=== PATIENT | male | born 2000 | race African-American/Black ===

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

== ENCOUNTER 2022-04-11 17:44 | Emergency (ER) | payer OTHER, SELFPAY ==
[2022-04-11] MEDS ORDERED: Acetaminophen 500 MG TAB ONE (18:29)
== END 2022-04-11 18:51 | disposition home or self-care (01) ==
LOC: ERS 17:44
DX: H66.93 Otitis media, unspecified, bilateral (principal)
CPT/HCPCS: 99282

== ENCOUNTER 2022-04-22 08:52 | Emergency (ER) | payer MEDICAID, OTHER ==
[2022-04-22 09:25] LABS: #Lymphocytes 1.5 thou/uL (1.20-3.40); #Monocytes 0.7 thou/uL (0.11-0.59); #Neutrophils 2.7 thou/uL (1.40-6.50); %Basophils 0.6 % (0.0-1.0); %Eosinophils 0.5 % (0.0-10.0); %Lymphocytes 31.2 % (28.0-48.0); %Monocytes 14.3 % (0.0-4.0); %Neutrophils 53.4 % (31.0-61.0); Hemoglobin 7.6 g/dL (14.0-18.0); Mean Corpuscular HGB CONC 32.1 g/dL (32.0-36.0); Mean Corpuscular Hemoglobin 30.1 pg (25.0-35.0); Mean Platelet Volume 6.3 fL (7.4-10.4); Platelet Count 218 thou/uL (130-400); Red Blood Cell (RBC) Count 2.52 mill/uL (4.00-5.20)
[2022-04-22 09:38] LABS: ALT (SGPT) 42 U/L (8-55); AST (SGOT) 42 U/L (10-45); Albumin 2.4 g/dL (3.5-5.0); Alkaline Phosphatase 231 U/L (50-130); Anion Gap 11 mmol/L (10-20); BUN (Urea Nitrogen) 5 mg/dL (8.4-21.0); Bilirubin, Total 0.7 mg/dL (0.2-1.2); Calc. Creatinine Clearance 0 mL/min (70-130); Carbon Dioxide 26 mmol/L (22-29); Chloride 102 mmol/L (98-107); Estimated GFR 133; Globulin 5.4 g/dL (2.4-3.5); Glucose 130 mg/dL (70-105); Protein, Total 7.8 g/dL (6.0-8.3); Sodium 137 mmol/L (136-145)
[2022-04-22 09:41] LABS: Potassium 2.2 mmol/L (3.5-5.1)
[2022-04-22 10:01] LABS: Lipase 18 U/L (8-78); Magnesium 1.8 mg/dL (1.7-2.2)
[2022-04-22] MEDS ORDERED: Potassium Chloride 20 MEQ TAB ONE (10:44)
[2022-04-22 12:19] LABS: Bacteria/HPF None Seen HPF (None Seen); Bilirubin Negative (Negative); Blood, Urine Negative (Negative); Clarity Clear (Clear); Glucose, Urine (Dipstick) Normal (Negative); Ketone, Urine Negative (Negative); Leukocyte Negative Leu/uL (Negative); Nitrite Negative (Negative); Protein, Urine (Dipstick) 30 mg/dL (Neg-Trace); RBC/HPF 0-3 HPF (0-3); Specific Gravity, Urine 1.017 (1.002-1.036); Squamous Epithelial None Seen HPF (0-3); Urobilinogen Normal mg/dL (Less than 2)
== END 2022-04-22 15:22 | disposition home or self-care (01) ==
LOC: ERS 08:52
DX: D64.9 Anemia, unspecified (principal); K62.5 Hemorrhage of anus and rectum; B20 Human immunodeficiency virus [HIV] disease
CPT/HCPCS: 36415; 36430; 80053; 81003; 81015; 82274; 83690; 83735; 84443; 85025; 86850; 86900; 86901; 93005; 94760; P9016

== ENCOUNTER 2022-11-09 14:00 | Inpatient (IN) | payer OTHER ==
[~2022-11-09 14:00] MED LIST: Iopamidol 370 76% 100 ML VIAL ONE; Sulfameth/Trimethoprim DS 800-160mg TAB PO SCH
[2022-11-09] MEDS ORDERED: Magnesium 2 GM/50 ML BAG (IN WATER) ONE (14:15)
[2022-11-09] MEDS ORDERED: Dexamethasone 10 MG/ML VIAL ONE (14:25)
[2022-11-09 14:35] LABS: Hemoglobin 5.4 g/dL (14.0-18.0); Mean Corpuscular HGB CONC 33.6 g/dL (32.0-36.0); Mean Corpuscular Hemoglobin 29.7 pg (25.0-35.0); Mean Corpuscular Volume 88.5 fl (78.0-98.0); Mean Platelet Volume 9.3 fL (7.4-10.4); Platelet Count 78 10x3/uL (130-400); RBC Distribution Width 15.2 % (11.5-14.5); Red Blood Cell (RBC) Count 1.83 mill/uL (4.00-5.20); White Blood Cell (WBC) Count 7.1 10x3/uL (4.8-10.8)
[2022-11-09 14:52] LABS: Anisocytosis SLIGHT = 6-15 cells (100X) (0-5/hpf); Band 11 % (5-11); Lymphocytes 28 % (28-48); MDiff Complete? YES; Monocytes 11 % (0-4); Neutrophil 48 % (31-61); Platelet Morphology Comment Appears Decreased; Polychromasia MODERATE = 3-4 cells (100X) (0-2/hpf); Reactive Lymphocytes 2 % (0-10)
[2022-11-09 14:53] LABS: ALT (SGPT) 44 U/L (8-55); AST (SGOT) 84 U/L (5-34); Albumin 2.2 g/dL (3.5-5.0); Alkaline Phosphatase 156 U/L (50-130); Anion Gap 13 mmol/L (10-20); BUN (Urea Nitrogen) 16 mg/dL (8.9-20.6); Bilirubin, Total 1.2 mg/dL (0.2-1.2); CK (CPK) 10 U/L (30-200); Calc. Creatinine Clearance 0 mL/min (70-130); Calcium 7.3 mg/dL (7.8-10.44); Carbon Dioxide 18 mmol/L (22-29); Chloride 101 mmol/L (98-107); Estimated GFR 132; Globulin 4.4 g/dL (2.4-3.5); Glucose 155 mg/dL (70-105); Lipase 21 U/L (8-78); Potassium 3.6 mmol/L (3.5-5.1); Protein, Total 6.6 g/dL (6.0-8.3); Sodium 128 mmol/L (136-145)
[2022-11-09 14:54] LABS: Acetaminophen Less than 10.0 mcg/mL (10.0-30.0); Alcohol Less than 10 mg/dL (Less than 10); Salicylate Less than 8.0 mg/dL (15.0-30.0)
[2022-11-09 15:59] LABS: Bilirubin Negative (Negative); Blood, Urine Negative (Negative); Clarity Clear (Clear); Glucose, Urine (Dipstick) Normal (Negative); Ketone, Urine Negative (Negative); Leukocyte Negative Leu/uL (Negative); Nitrite Negative (Negative); Protein, Urine (Dipstick) 20 mg/dL (Neg-Trace); Specific Gravity, Urine 1.028 (1.002-1.036)
[2022-11-09 16:07] LABS: Amphetamine Not Detected (NotDetected); Barbiturates Screen Not Detected (NotDetected); Benzodiazepine Screen Not Detected (NotDetected); Cocaine Metabolite Screen Not Detected (NotDetected); Methadone Not Detected (NotDetected); Methamphetamine Not Detected (NotDetected); Opiate Screen Not Detected (NotDetected); Oxycodone Screen Not Detected (NotDetected); Phencyclidine (PCP) Not Detected (NotDetected); THC/Cannabinoid Screen Not Detected (NotDetected); Tricyclic Screen Not Detected (NotDetected)
[2022-11-09] MEDS ORDERED: cefTRIAXone\\ROCEPHIN 2 GM VIAL ONE (16:19)
[2022-11-09] MEDS ORDERED: Azithromycin 500 MG VIAL ONE (16:19)
[2022-11-09] MEDS ORDERED: Ondansetron PF 4 MG/2 ML Vial IVP PRN (16:24)
[2022-11-09] MEDS ORDERED: HYDROcodone/Acetaminophen 5/325 mg Tablet PO PRN (16:24)
[2022-11-09] MEDS ORDERED: Ipratropium/Albuterol 3 ML NEB ONE (16:31)
[2022-11-09] MEDS ORDERED: Ketorolac Tromethamine 30 MG/ML VIAL ONE (16:36)
[2022-11-09] MEDS ORDERED: HYDROmorphone 0.5 MG/0.5 ML SYRINGE SLOW IVP SCH (16:45)
[2022-11-09] MEDS ORDERED: Sulfameth/Trimethoprim DS 800-160mg TAB PO SCH (17:00)
[2022-11-09] MEDS ORDERED: Lidocaine 5% Patch TD SCH (17:00)
[2022-11-09] MEDS ORDERED: Folic Acid 1 MG TAB PO SCH (17:00)
[2022-11-09] MEDS ORDERED: Metoprolol Tartrate 5 MG/5 ML VIAL IVP PRN (17:08)
[2022-11-09 17:21] LABS: Iron 16 ug/dL (65-175); Iron Binding Capacity, Total 224 mcg/dL (261-462)
[2022-11-09] MEDS ORDERED: Iron Sucrose Complex 200 MG in Sodium Chloride 0.9% 100 ML IVPB SCH (17:30)
[2022-11-09 17:40] LABS: HBSAg Index 0.29 S/CO (0-0.99); Hep B Surf Ag Non-Reactive S/CO (NonReactive); Hep C IgG Ab Non-Reactive (NonReactive); Hep C Index 0.18 S/CO (0-0.79)
[2022-11-09 17:42] LABS: HBCM Index 0.13 S/CO (0-0.79); Hepatitis B Core IgM Abs Non-Reactive (NonReactive)
[2022-11-09 17:45] LABS: Vitamin B12 1432 pg/mL (211-911)
[2022-11-09] MEDS ORDERED: Iron, Sodium Ferric Gluconate 250 MG in Sodium Chloride 0.9% 250 ML 250 ML IVPB SCH ×2 (17:45→21:30)
[2022-11-09 17:49] LABS: SARS-CoV-2 NAA Rapid Test DETECTED (NotDetected)
[2022-11-09 17:55] LABS: HIV (1/2) Antibody/Antigen Reflxed Confirmation (NonReactive)
[2022-11-09 18:17] LABS: HIV 1/2 INDEX 1351.36 S/CO (<1.00)
[2022-11-09 18:18] LABS: Hep A IgM S/CO 0.82 S/CO (0-0.79)
[2022-11-09 18:30] LABS: Hep A IgM AB Equivocal (NonReactive)
[2022-11-09 18:32] LABS: Ferritin 5304.73 ng/mL (22-322)
[2022-11-09] MEDS: Sodium Chloride 0.9% 1,000 ML IV SCH (20:56)
[2022-11-09] MEDS: Famotidine/PF 20 mg/2ml Vial SLOW IVP SCH (21:00)
[2022-11-09] MEDS: Lidocaine 4% Patch TD SCH (21:44)
[2022-11-10 02:31] LABS: Strep pneumo Urine Ag NEGATIVE (NEGATIVE)
[2022-11-10] MEDS: Sodium Chloride 0.9% 1,000 ML IV SCH ×5 (03:48→22:06)
[2022-11-10 06:56] LABS: SARS-CoV-2 NAA Rapid Test DETECTED (NotDetected)
[2022-11-10 07:43] LABS: Mean Corpuscular Hemoglobin 28.1 pg (25.0-35.0); Mean Corpuscular Volume 87.9 fl (78.0-98.0); Mean Platelet Volume 9.7 fL (7.4-10.4); Platelet Count 58 10x3/uL (130-400); RBC Distribution Width 15.8 % (11.5-14.5); Red Blood Cell (RBC) Count 2.85 mill/uL (4.00-5.20); White Blood Cell (WBC) Count 6.4 10x3/uL (4.8-10.8)
[2022-11-10 08:01] LABS: ALT (SGPT) 45 U/L (8-55); AST (SGOT) 75 U/L (5-34); Albumin 1.9 g/dL (3.5-5.0); Alkaline Phosphatase 151 U/L (50-130); Anion Gap 11 mmol/L (10-20); BUN (Urea Nitrogen) 11 mg/dL (8.9-20.6); Bilirubin, Total 1.6 mg/dL (0.2-1.2); Calc. Creatinine Clearance 169 mL/min (70-130); Calcium 7.7 mg/dL (7.8-10.44); Carbon Dioxide 17 mmol/L (22-29); Chloride 108 mmol/L (98-107); Estimated GFR 146; Globulin 4.8 g/dL (2.4-3.5); Glucose 155 mg/dL (70-105); Potassium 4.4 mmol/L (3.5-5.1); Protein, Total 6.7 g/dL (6.0-8.3); Sodium 132 mmol/L (136-145)
[2022-11-10] MEDS ORDERED: Sulfameth/Trimethoprim DS 800-160mg TAB PO SCH (09:00)
[2022-11-10] MEDS: Famotidine/PF 20 mg/2ml Vial SLOW IVP SCH ×2 (09:50→20:03)
[2022-11-10] MEDS: Folic Acid 1 MG TAB PO SCH (09:51)
[2022-11-10] MEDS: Transdermal Patch Removal TOP SCH ×2 (09:51→10:20)
[2022-11-10 10:05] LABS: Band 12 % (5-11); Differential Comment Plasma-cytoid Cells; Lymphocytes 15 % (28-48); MDiff Complete? YES; Metamyelocyte 1 % (0-0); Monocytes 16 % (0-4); Neutrophil 52 % (31-61); Nucleated RBC 1 % (0); Platelet Morphology Comment Appears Decreased; Polychromasia SLIGHT = 2-3 cells (100X) (0-2/hpf); Reflex for Review?? YES
[2022-11-10] MEDS ORDERED: NIRMATRELVIR 150 MG/RITONAVIR 100 MG PO SCH (15:15)
[2022-11-10] MEDS: cefTRIAXone\\ROCEPHIN 1 GM in Sodium Chloride 0.9% 100 ML IVPB SCH (15:56)
[2022-11-10] MEDS ORDERED: IRON SUCROSE COMPLEX 100 MG/5 ML SLOW IVP SCH (17:30)
[2022-11-10] MEDS ORDERED: Iron, Sodium Ferric Gluconate 125 MG in Sodium Chloride 0.9% 100 ML IVPB SCH (18:00)
[2022-11-10] MEDS: Azithromycin 500 MG in Sodium Chloride 0.9% 250 ML 250 ML IVPB SCH (18:36)
[2022-11-10] MEDS: NIRMATRELVIR 150 MG/RITONAVIR 100 MG PO SCH (20:03)
[2022-11-10] MEDS: Lidocaine 4% Patch TD SCH (22:06)
[2022-11-11] MEDS: Melatonin 3 MG TAB PO PRN ×2 (02:38→20:14)
[2022-11-11] MEDS: Benzonatate 100 MG CAP PO PRN ×2 (02:38→12:13)
[2022-11-11] MEDS ORDERED: Lactated Ringer's 500 ML IV SCH (05:45)
[2022-11-11] MEDS: Acetaminophen 325 MG TAB PO PRN (06:32)
[2022-11-11 07:02] LABS: Hemoglobin 6.5 g/dL (14.0-18.0); Mean Corpuscular HGB CONC 32.6 g/dL (32.0-36.0); Mean Corpuscular Hemoglobin 28.7 pg (25.0-35.0); Mean Platelet Volume 10.1 fL (7.4-10.4); Platelet Count 59 10x3/uL (130-400); Red Blood Cell (RBC) Count 2.27 mill/uL (4.00-5.20); White Blood Cell (WBC) Count 7.7 10x3/uL (4.8-10.8)
[2022-11-11 07:14] LABS: ALT (SGPT) 30 U/L (8-55); AST (SGOT) 39 U/L (5-34); Albumin 1.9 g/dL (3.5-5.0); Alkaline Phosphatase 135 U/L (50-130); Anion Gap 13 mmol/L (10-20); BUN (Urea Nitrogen) 10 mg/dL (8.9-20.6); Bilirubin, Total 1.1 mg/dL (0.2-1.2); Calc. Creatinine Clearance 153 mL/min (70-130); Calcium 7.5 mg/dL (7.8-10.44); Carbon Dioxide 12 mmol/L (22-29); Chloride 108 mmol/L (98-107); Estimated GFR 141; Globulin 4.1 g/dL (2.4-3.5); Glucose 79 mg/dL (70-105); Potassium 4.5 mmol/L (3.5-5.1); Sodium 128 mmol/L (136-145)
[2022-11-11 08:21] LABS: Band 11 % (5-11); Lymphocytes 27 % (28-48); MDiff Complete? YES; Metamyelocyte 1 % (0-0); Monocytes 11 % (0-4); Neutrophil 49 % (31-61); Platelet Morphology Comment Appears Decreased; Polychromasia SLIGHT = 2-3 cells (100X) (0-2/hpf); Reactive Lymphocytes 1 % (0-10)
[2022-11-11] MEDS: Sodium Chloride 0.9% 1,000 ML IV SCH ×2 (08:47→20:13)
[2022-11-11] MEDS: Folic Acid 1 MG TAB PO SCH (08:51)
[2022-11-11] MEDS: NIRMATRELVIR 150 MG/RITONAVIR 100 MG PO SCH ×2 (08:55→20:14)
[2022-11-11] MEDS: Famotidine/PF 20 mg/2ml Vial SLOW IVP SCH (08:56)
[2022-11-11] MEDS ORDERED: Dexamethasone 10 MG/ML VIAL SLOW IVP SCH (10:45)
[2022-11-11] MEDS ORDERED: Pantoprazole 40 MG VIAL IVP SCH (10:45)
[2022-11-11] MEDS: Transdermal Patch Removal TOP SCH (11:15)
[2022-11-11] MEDS: Albuterol 200 PUFF (6.7GM INHALER) INH PRN (12:13)
[2022-11-11 12:16] LABS: HIV 1 Antibody Multi-Spot Reactive (Non Reactive); HIV 2 Antibody Multi-Spot Non Reactive (Non Reactive); HIV Multi-spot Interp HIV-1 Positive (.)
[2022-11-11 16:10] LABS: %CD4 (Helper/Inducer) 1.6 % (30.8-58.5); Absolute CD4 29 /uL (359-1519); Lymphocytes/Gated Cell Count 1.8 x10E3/uL (0.7-3.1); Total Lymphocyte 24 % (Not Estab.); WBC Total Count 7.3 x10E3/uL (3.4-10.8)
[2022-11-11] MEDS: cefTRIAXone\\ROCEPHIN 1 GM in Sodium Chloride 0.9% 100 ML IVPB SCH (16:23)
[2022-11-11] MEDS: Azithromycin 500 MG in Sodium Chloride 0.9% 250 ML 250 ML IVPB SCH (18:06)
[2022-11-11] MEDS: Lidocaine 4% Patch TD SCH (20:14)
[2022-11-12] MEDS: Sodium Chloride 0.9% 1,000 ML IV SCH ×3 (05:13→19:05)
[2022-11-12] MEDS: Albuterol 200 PUFF (6.7GM INHALER) INH PRN ×3 (05:49→18:15)
[2022-11-12] MEDS ORDERED: Pantoprazole 40 MG VIAL IVP SCH (09:00)
[2022-11-12] MEDS ORDERED: FLU VACC QS2022-23(6MOS UP)/PF 60 MCG/0.5 ML SYRINGE IM ONE (09:00)
[2022-11-12] MEDS: Dexamethasone 10 MG/ML VIAL SLOW IVP SCH (09:09)
[2022-11-12] MEDS: Folic Acid 1 MG TAB PO SCH (09:09)
[2022-11-12] MEDS: Benzonatate 100 MG CAP PO PRN (09:09)
[2022-11-12] MEDS: NIRMATRELVIR 150 MG/RITONAVIR 100 MG PO SCH ×2 (09:10→20:28)
[2022-11-12] MEDS: Transdermal Patch Removal TOP SCH (09:14)
[2022-11-12 09:57] LABS: Hemoglobin 7.9 g/dL (14.0-18.0); Mean Corpuscular HGB CONC 33.4 g/dL (32.0-36.0); Mean Corpuscular Volume 86.7 fl (78.0-98.0); Mean Platelet Volume 9.5 fL (7.4-10.4); Platelet Count 55 10x3/uL (130-400); RBC Distribution Width 15.8 % (11.5-14.5); Red Blood Cell (RBC) Count 2.72 mill/uL (4.00-5.20); White Blood Cell (WBC) Count 8.8 10x3/uL (4.8-10.8)
[2022-11-12 10:06] LABS: ALT (SGPT) 30 U/L (8-55); AST (SGOT) 46 U/L (5-34); Albumin 1.7 g/dL (3.5-5.0); Alkaline Phosphatase 165 U/L (50-130); Anion Gap 13 mmol/L (10-20); BUN (Urea Nitrogen) 8 mg/dL (8.9-20.6); Calc. Creatinine Clearance 172 mL/min (70-130); Calcium 7.4 mg/dL (7.8-10.44); Carbon Dioxide 16 mmol/L (22-29); Chloride 105 mmol/L (98-107); Estimated GFR 146; Globulin 4.1 g/dL (2.4-3.5); Glucose 133 mg/dL (70-105); Potassium 4.1 mmol/L (3.5-5.1); Protein, Total 5.8 g/dL (6.0-8.3); Sodium 130 mmol/L (136-145)
[2022-11-12 11:06] LABS: Band 7 % (5-11); Lymphocytes 17 % (28-48); MDiff Complete? YES; Monocytes 19 % (0-4); Neutrophil 54 % (31-61); Platelet Morphology Comment Appears Decreased; Polychromasia SLIGHT = 2-3 cells (100X) (0-2/hpf); Reactive Lymphocytes 3 % (0-10)
[2022-11-12 17:12] LABS: LOG10 HIV-1 RNA 3.625 (.)
[2022-11-12] MEDS: cefTRIAXone\\ROCEPHIN 1 GM in Sodium Chloride 0.9% 100 ML IVPB SCH (17:29)
[2022-11-12] MEDS: Azithromycin 500 MG in Sodium Chloride 0.9% 250 ML 250 ML IVPB SCH (18:13)
[2022-11-12] MEDS: Lidocaine 4% Patch TD SCH (20:28)
[2022-11-12] MEDS: Melatonin 3 MG TAB PO PRN (20:29)
[2022-11-12 22:12] LABS: Mycoplasma pneumoniae IgG AB 321 U/mL (0-99); Mycoplasma pneumoniae IgM AB Less than 770 U/mL (0-769)
[2022-11-13 07:18] LABS: Anion Gap 14 mmol/L (10-20); BUN (Urea Nitrogen) 12 mg/dL (8.9-20.6); Calc. Creatinine Clearance 166 mL/min (70-130); Calcium 7.2 mg/dL (7.8-10.44); Carbon Dioxide 16 mmol/L (22-29); Chloride 106 mmol/L (98-107); Estimated GFR 145; Glucose 123 mg/dL (70-105); Potassium 4.3 mmol/L (3.5-5.1); Sodium 132 mmol/L (136-145)
[2022-11-13 07:28] LABS: Hemoglobin 7.6 g/dL (14.0-18.0); Mean Corpuscular HGB CONC 32.7 g/dL (32.0-36.0); Mean Corpuscular Hemoglobin 29.2 pg (25.0-35.0); Mean Corpuscular Volume 89.3 fl (78.0-98.0); Mean Platelet Volume 9.3 fL (7.4-10.4); Platelet Count 47 10x3/uL (130-400); RBC Distribution Width 16.6 % (11.5-14.5); Red Blood Cell (RBC) Count 2.61 mill/uL (4.00-5.20); White Blood Cell (WBC) Count 7.9 10x3/uL (4.8-10.8)
[2022-11-13 08:12] LABS: Band 10 % (5-11); Differential Comment Plasma-cytoid Cells; Eosinophils 1 % (0-10); Lymphocytes 15 % (28-48); MDiff Complete? YES; Monocytes 11 % (0-4); Neutrophil 57 % (31-61); Platelet Morphology Comment Appears Decreased; Polychromasia SLIGHT = 2-3 cells (100X) (0-2/hpf); Reactive Lymphocytes 3 % (0-10)
[2022-11-13 08:18] LABS: QuantiFERON-TB Gold Plus Negative (Negative)
[2022-11-13] MEDS: Sodium Chloride 0.9% 1,000 ML IV SCH ×3 (08:51→17:14)
[2022-11-13] MEDS: Albuterol 200 PUFF (6.7GM INHALER) INH PRN ×2 (08:51→22:49)
[2022-11-13] MEDS: Dexamethasone 10 MG/ML VIAL SLOW IVP SCH (08:52)
[2022-11-13] MEDS: NIRMATRELVIR 150 MG/RITONAVIR 100 MG PO SCH ×2 (08:53→19:57)
[2022-11-13] MEDS: Folic Acid 1 MG TAB PO SCH (08:53)
[2022-11-13] MEDS: Transdermal Patch Removal TOP SCH (08:54)
[2022-11-13 14:12] LABS: Hemoglobin 7.5 g/dL (14.0-18.0); Mean Corpuscular HGB CONC 32.9 g/dL (32.0-36.0); Mean Corpuscular Hemoglobin 29.1 pg (25.0-35.0); Mean Corpuscular Volume 88.4 fl (78.0-98.0); Mean Platelet Volume 9.9 fL (7.4-10.4); Platelet Count 38 10x3/uL (130-400); RBC Distribution Width 16.8 % (11.5-14.5); Red Blood Cell (RBC) Count 2.56 mill/uL (4.00-5.20); White Blood Cell (WBC) Count 7.1 10x3/uL (4.8-10.8)
[2022-11-13 14:31] LABS: ALT (SGPT) 28 U/L (8-55); AST (SGOT) 45 U/L (5-34); Albumin 1.6 g/dL (3.5-5.0); Alkaline Phosphatase 153 U/L (50-130); Anion Gap 13 mmol/L (10-20); BUN (Urea Nitrogen) 12 mg/dL (8.9-20.6); Bilirubin, Direct 4.6 mg/dL (0.1-0.3); Bilirubin, Total 6.1 mg/dL (0.2-1.2); Calc. Creatinine Clearance 169 mL/min (70-130); Calcium 7.2 mg/dL (7.8-10.44); Carbon Dioxide 15 mmol/L (22-29); Chloride 106 mmol/L (98-107); Estimated GFR 146; Globulin 3.9 g/dL (2.4-3.5); Glucose 136 mg/dL (70-105); Potassium 4.3 mmol/L (3.5-5.1); Protein, Total 5.5 g/dL (6.0-8.3); Sodium 130 mmol/L (136-145)
[2022-11-13 15:06] LABS: Band 2 % (5-11); Basophilic Stippling SLIGHT = 1-2 cells (100X) (None Seen); Lymphocytes 8 % (28-48); MDiff Complete? YES; Monocytes 12 % (0-4); Neutrophil 76 % (31-61); Ovalocytes SLIGHT = 2-5 cells (100X) (0-1/hpf); Platelet Morphology Comment Appears Decreased; Polychromasia SLIGHT = 2-3 cells (100X) (0-2/hpf); Reactive Lymphocytes 2 % (0-10)
[2022-11-13] MEDS: cefTRIAXone\\ROCEPHIN 1 GM in Sodium Chloride 0.9% 100 ML IVPB SCH (17:14)
[2022-11-13] MEDS: Azithromycin 500 MG in Sodium Chloride 0.9% 250 ML 250 ML IVPB SCH (18:38)
[2022-11-13] MEDS: Lidocaine 4% Patch TD SCH (19:51)
[2022-11-13] MEDS: Melatonin 3 MG TAB PO PRN (19:57)
[2022-11-13] MEDS ORDERED: Dexamethasone 4 mg/ml Vial SLOW IVP SCH (23:15)
[2022-11-14] MEDS: Sodium Chloride 0.9% 1,000 ML IV SCH ×3 (04:47→16:35)
[2022-11-14] MEDS: Albuterol 200 PUFF (6.7GM INHALER) INH PRN (06:41)
[2022-11-14 07:11] LABS: Hemoglobin 7.4 g/dL (14.0-18.0); Mean Corpuscular HGB CONC 31.5 g/dL (32.0-36.0); Mean Corpuscular Hemoglobin 28.5 pg (25.0-35.0); Mean Corpuscular Volume 90.7 fl (78.0-98.0); Mean Platelet Volume 10.3 fL (7.4-10.4); Platelet Count 39 10x3/uL (130-400); RBC Distribution Width 16.6 % (11.5-14.5); Red Blood Cell (RBC) Count 2.58 mill/uL (4.00-5.20); White Blood Cell (WBC) Count 6.6 10x3/uL (4.8-10.8)
[2022-11-14 07:27] LABS: Anion Gap 11 mmol/L (10-20); BUN (Urea Nitrogen) 16 mg/dL (8.9-20.6); Calc. Creatinine Clearance 172 mL/min (70-130); Calcium 7.2 mg/dL (7.8-10.44); Carbon Dioxide 16 mmol/L (22-29); Chloride 109 mmol/L (98-107); Estimated GFR 146; Glucose 129 mg/dL (70-105); Potassium 4.4 mmol/L (3.5-5.1); Sodium 132 mmol/L (136-145)
[2022-11-14 08:00] LABS: Band 7 % (5-11); Differential Comment Plasma-like Cell(s); Lymphocytes 15 % (28-48); MDiff Complete? YES; Metamyelocyte 1 % (0-0); Monocytes 15 % (0-4); Neutrophil 56 % (31-61); Nucleated RBC 1 % (0); Platelet Morphology Comment Appears Decreased; Polychromasia SLIGHT = 2-3 cells (100X) (0-2/hpf); Reactive Lymphocytes 2 % (0-10)
[2022-11-14] MEDS: NIRMATRELVIR 150 MG/RITONAVIR 100 MG PO SCH ×2 (08:25→21:17)
[2022-11-14] MEDS: Folic Acid 1 MG TAB PO SCH (08:26)
[2022-11-14] MEDS: BIKTARVY PO SCH (08:26)
[2022-11-14] MEDS: Dexamethasone 10 MG/ML VIAL SLOW IVP SCH (08:26)
[2022-11-14] MEDS ORDERED: Ascorbic Acid 500 mg Chewable Tablet PO SCH (12:00)
[2022-11-14] MEDS ORDERED: guaiFENesin ER 600 MG TAB PO SCH (12:00)
[2022-11-14] MEDS: Transdermal Patch Removal TOP SCH (12:07)
[2022-11-14] MEDS: Zinc Sulfate 220 MG CAP PO SCH ×2 (12:09→12:11)
[2022-11-14] MEDS: Ascorbic Acid 500 mg Chewable Tablet PO SCH (12:09)
[2022-11-14] MEDS: guaiFENesin ER 600 MG TAB PO SCH (12:10)
[2022-11-14] MEDS ORDERED: Cholecalciferol (Vitamin D3) 400 UNITS TAB PO SCH (12:15)
[2022-11-14] MEDS: Albuterol 200 PUFF (6.7GM INHALER) INH SCH ×3 (14:18→21:18)
[2022-11-14] MEDS: cefTRIAXone\\ROCEPHIN 1 GM in Sodium Chloride 0.9% 100 ML IVPB SCH (16:36)
[2022-11-14] MEDS: Azithromycin 500 MG in Sodium Chloride 0.9% 250 ML 250 ML IVPB SCH (17:50)
[2022-11-14] MEDS: Acetaminophen 325 MG TAB PO PRN (21:16)
[2022-11-14] MEDS: Lidocaine 4% Patch TD SCH (21:17)
[2022-11-15] MEDS: Albuterol 200 PUFF (6.7GM INHALER) INH SCH ×6 (03:00→21:15)
[2022-11-15 06:28] LABS: Mean Corpuscular HGB CONC 31.8 g/dL (32.0-36.0); Mean Corpuscular Hemoglobin 28.6 pg (25.0-35.0); Mean Platelet Volume 11.4 fL (7.4-10.4); Platelet Count 26 10x3/uL (130-400); RBC Distribution Width 16.6 % (11.5-14.5); Red Blood Cell (RBC) Count 2.45 mill/uL (4.00-5.20); White Blood Cell (WBC) Count 5.7 10x3/uL (4.8-10.8)
[2022-11-15] MEDS: Sodium Chloride 0.9% 1,000 ML IV SCH ×2 (06:43→18:38)
[2022-11-15 06:46] LABS: Band 9 % (5-11); Lymphocytes 7 % (28-48); MDiff Complete? YES; Monocytes 14 % (0-4); Neutrophil 68 % (31-61); Platelet Morphology Comment Appears Decreased; Reactive Lymphocytes 2 % (0-10)
[2022-11-15 06:59] LABS: ALT (SGPT) 20 U/L (8-55); AST (SGOT) 35 U/L (5-34); Albumin 1.5 g/dL (3.5-5.0); Alkaline Phosphatase 120 U/L (50-130); Anion Gap 11 mmol/L (10-20); BUN (Urea Nitrogen) 23 mg/dL (8.9-20.6); Bilirubin, Total 8.7 mg/dL (0.2-1.2); Calc. Creatinine Clearance 169 mL/min (70-130); Calcium 7.2 mg/dL (7.8-10.44); Carbon Dioxide 16 mmol/L (22-29); Chloride 113 mmol/L (98-107); Estimated GFR 146; Globulin 3.6 g/dL (2.4-3.5); Glucose 130 mg/dL (70-105); Potassium 4.3 mmol/L (3.5-5.1); Protein, Total 5.1 g/dL (6.0-8.3); Sodium 136 mmol/L (136-145)
[2022-11-15] MEDS: Dexamethasone 10 MG/ML VIAL SLOW IVP SCH ×2 (09:08→21:13)
[2022-11-15] MEDS: Cholecalciferol (Vitamin D3) 400 UNITS TAB PO SCH (09:09)
[2022-11-15] MEDS: Folic Acid 1 MG TAB PO SCH (09:10)
[2022-11-15] MEDS: Ascorbic Acid 500 mg Chewable Tablet PO SCH (09:10)
[2022-11-15] MEDS: BIKTARVY PO SCH (09:11)
[2022-11-15] MEDS: guaiFENesin ER 600 MG TAB PO SCH ×2 (09:11→21:14)
[2022-11-15] MEDS: Zinc Sulfate 220 MG CAP PO SCH (09:11)
[2022-11-15] MEDS: Transdermal Patch Removal TOP SCH (09:13)
[2022-11-15] MEDS: Acetaminophen 325 MG TAB PO PRN (10:57)
[2022-11-15 12:42] LABS: Actual Bicarbonate (HCO3a) 17.5 mEq/L (22-28); Base Excess (BEa) -5.3 mEq/L (-2.0 to +3.0); Calcium, Ionized (arterial) 1.09 mmol/L (1.12-1.30); Carboxyhemoglobin (COHb) 1.9 gm% (0.0-3.0); Hemoglobin (Hb) 6.7 g/dL (11.4-15.4); Potassium - ABG Lab 4.39 mmol/L (3.70-5.30); pH, Arterial 7.48 (7.35-7.45)
[2022-11-15 12:44] LABS: Puncture Site RRA
[2022-11-15] MEDS ORDERED: Sulfameth/Trimethoprim DS 800-160mg TAB PO SCH (15:00)
[2022-11-15] MEDS ORDERED: ISOVUE-370 76%-LOCM 1 ML ONE (15:15)
[2022-11-15] MEDS ORDERED: Morphine 4 MG/ML VIAL SLOW IVP SCH (18:00)
[2022-11-15] MEDS: SULFAMETHOXAZOLE IVPB SCH (18:38)
[2022-11-15] MEDS: DEXTROSE 5% IVPB SCH (18:38)
[2022-11-15] MEDS: TRIMETHOPRIM IVPB SCH (18:38)
[2022-11-15] MEDS: WATER IVPB SCH (18:38)
[2022-11-15] MEDS: cefTRIAXone\\ROCEPHIN 1 GM in Sodium Chloride 0.9% 100 ML IVPB SCH (21:14)
[2022-11-15] MEDS: Lidocaine 4% Patch TD SCH (21:14)
[2022-11-15] MEDS: Pantoprazole 40 MG VIAL IVP SCH (21:15)
[2022-11-15 23:10] LABS: Hemoglobin 8.6 g/dL (14.0-18.0)
[2022-11-16] MEDS: TRIMETHOPRIM IVPB SCH ×4 (00:26→21:27)
[2022-11-16] MEDS: SULFAMETHOXAZOLE IVPB SCH ×4 (00:26→21:27)
[2022-11-16] MEDS: DEXTROSE 5% IVPB SCH ×4 (00:26→21:27)
[2022-11-16] MEDS: WATER IVPB SCH ×4 (00:26→21:27)
[2022-11-16] MEDS: Albuterol 200 PUFF (6.7GM INHALER) INH SCH ×6 (03:00→21:27)
[2022-11-16] MEDS: Sodium Chloride 0.9% 1,000 ML IV SCH (04:46)
[2022-11-16] MEDS: Zinc Sulfate 220 MG CAP PO SCH (08:49)
[2022-11-16] MEDS: Ascorbic Acid 500 mg Chewable Tablet PO SCH (08:49)
[2022-11-16] MEDS: Fluconazole 100 MG TAB PO SCH (08:49)
[2022-11-16] MEDS: Cholecalciferol (Vitamin D3) 400 UNITS TAB PO SCH (08:49)
[2022-11-16] MEDS: Pantoprazole 40 MG VIAL IVP SCH ×2 (08:50→21:26)
[2022-11-16] MEDS: Dexamethasone 10 MG/ML VIAL SLOW IVP SCH ×2 (08:50→21:26)
[2022-11-16] MEDS: guaiFENesin ER 600 MG TAB PO SCH ×2 (08:50→21:27)
[2022-11-16] MEDS: Folic Acid 1 MG TAB PO SCH (08:50)
[2022-11-16] MEDS: BIKTARVY PO SCH (08:51)
[2022-11-16] MEDS: Transdermal Patch Removal TOP SCH (08:51)
[2022-11-16 09:40] LABS: ALT (SGPT) 17 U/L (8-55); AST (SGOT) 43 U/L (5-34); Albumin 1.4 g/dL (3.5-5.0); Alkaline Phosphatase 137 U/L (50-130); Anion Gap 13 mmol/L (10-20); BUN (Urea Nitrogen) 24 mg/dL (8.9-20.6); Bilirubin, Total 10.2 mg/dL (0.2-1.2); Calc. Creatinine Clearance 202 mL/min (70-130); Calcium 7.2 mg/dL (7.8-10.44); Carbon Dioxide 12 mmol/L (22-29); Chloride 114 mmol/L (98-107); Estimated GFR 154; Globulin 3.9 g/dL (2.4-3.5); Glucose 126 mg/dL (70-105); Potassium 4.9 mmol/L (3.5-5.1); Protein, Total 5.3 g/dL (6.0-8.3); Sodium 134 mmol/L (136-145)
[2022-11-16 09:46] LABS: Band 15 % (5-11); Eosinophils 1 % (0-10); Hemoglobin 8.1 g/dL (14.0-18.0); Lymphocytes 7 % (28-48); MDiff Complete? YES; Mean Corpuscular Hemoglobin 29.3 pg (25.0-35.0); Mean Corpuscular Volume 91.5 fl (78.0-98.0); Mean Platelet Volume 12.8 fL (7.4-10.4); Metamyelocyte 1 % (0-0); Monocytes 6 % (0-4); Myelocyte 1 % (0-0); Neutrophil 65 % (31-61); Nucleated RBC 4 % (0); Platelet Count 27 10x3/uL (130-400); Platelet Morphology Comment Appears Decreased; RBC Distribution Width 15.7 % (11.5-14.5); RBC Morphology Normal; Reactive Lymphocytes 4 % (0-10); Red Blood Cell (RBC) Count 2.76 mill/uL (4.00-5.20); White Blood Cell (WBC) Count 6.3 10x3/uL (4.8-10.8)
[2022-11-16] MEDS ORDERED: Sodium Bicarbonate Tab 325 MG TAB PO SCH (10:15)
[2022-11-16 10:57] LABS: Lactic Acid 2.1 mmol/L (0.5-2.2)
[2022-11-16 11:00] LABS: INR-International Normal Ratio 1.3; Prothrombin Time 16.9 sec (12.0-14.7)
[2022-11-16] MEDS: Sodium Bicarbonate 150 MEQ in Dextrose 5% in Water 1,000 ML IV SCH (14:16)
[2022-11-16 14:30] LABS: Anion Gap 13 mmol/L (10-20); BUN (Urea Nitrogen) 24 mg/dL (8.9-20.6); Calc. Creatinine Clearance 179 mL/min (70-130); Calcium 7.1 mg/dL (7.8-10.44); Carbon Dioxide 15 mmol/L (22-29); Chloride 113 mmol/L (98-107); Estimated GFR 148; Glucose 122 mg/dL (70-105); Potassium 4.9 mmol/L (3.5-5.1); Sodium 136 mmol/L (136-145)
[2022-11-16] MEDS: cefTRIAXone\\ROCEPHIN 1 GM in Sodium Chloride 0.9% 100 ML IVPB SCH (16:22)
[2022-11-16] MEDS: Albumin 25% 25 GM/100 ML BOT IVPB SCH ×2 (18:09→23:25)
[2022-11-16 18:50] LABS: Hemoglobin 9.3 g/dL (14.0-18.0)
[2022-11-16 19:25] LABS: ALT (SGPT) 17 U/L (8-55); AST (SGOT) 27 U/L (5-34); Albumin 1.6 g/dL (3.5-5.0); Alkaline Phosphatase 114 U/L (50-130); Anion Gap 13 mmol/L (10-20); BUN (Urea Nitrogen) 23 mg/dL (8.9-20.6); Calc. Creatinine Clearance 172 mL/min (70-130); Calcium 7.1 mg/dL (7.8-10.44); Carbon Dioxide 15 mmol/L (22-29); Chloride 112 mmol/L (98-107); Estimated GFR 146; Globulin 3.3 g/dL (2.4-3.5); Glucose 171 mg/dL (70-105); Potassium 4.6 mmol/L (3.5-5.1); Protein, Total 4.9 g/dL (6.0-8.3); Sodium 135 mmol/L (136-145)
[2022-11-16] MEDS: Sodium Bicarbonate Tab 325 MG TAB PO SCH (21:26)
[2022-11-16] MEDS: Lidocaine 4% Patch TD SCH (21:27)
[2022-11-16] MEDS: Benzonatate 100 MG CAP PO PRN (21:28)
[2022-11-16] MEDS ORDERED: Nystatin 100,000 Units/mL UDCUP SSW SCH (22:30)
[2022-11-16] MEDS ORDERED: Baclofen 10 MG TAB PO PRN (22:42)
[2022-11-17] MEDS: Albuterol 200 PUFF (6.7GM INHALER) INH SCH ×6 (02:47→21:52)
[2022-11-17] MEDS ORDERED: Furosemide 20 MG/2 ML VIAL SLOW IVP SCH (03:30)
[2022-11-17] MEDS ORDERED: Mometasone 100 MCG/Formoterol 5 MCG 120 PUFF INHALER INH SCH ×2 (03:45→06:30)
[2022-11-17] MEDS ORDERED: Mometasone/Formoterol 60 PUFF AER INH SCH (03:45)
[2022-11-17] MEDS: Albumin 25% 25 GM/100 ML BOT IVPB SCH (05:03)
[2022-11-17] MEDS: Ascorbic Acid 500 mg Chewable Tablet PO SCH (08:12)
[2022-11-17] MEDS: Dexamethasone 10 MG/ML VIAL SLOW IVP SCH ×2 (08:12→20:42)
[2022-11-17] MEDS: Pantoprazole 40 MG VIAL IVP SCH ×2 (08:12→20:43)
[2022-11-17] MEDS: Folic Acid 1 MG TAB PO SCH (08:13)
[2022-11-17] MEDS: Zinc Sulfate 220 MG CAP PO SCH (08:13)
[2022-11-17] MEDS: Fluconazole 100 MG TAB PO SCH (08:13)
[2022-11-17] MEDS: Cholecalciferol (Vitamin D3) 400 UNITS TAB PO SCH (08:13)
[2022-11-17] MEDS: guaiFENesin ER 600 MG TAB PO SCH ×2 (08:13→20:42)
[2022-11-17] MEDS: BIKTARVY PO SCH (08:22)
[2022-11-17] MEDS: Transdermal Patch Removal TOP SCH (08:23)
[2022-11-17] MEDS: Sodium Bicarbonate Tab 325 MG TAB PO SCH ×2 (08:23→20:42)
[2022-11-17] MEDS ORDERED: Sulfameth/Trimethoprim DS 800-160mg TAB PO SCH (09:00)
[2022-11-17 09:09] LABS: Actual Bicarbonate (HCO3a) 17.3 mEq/L (22-28); Analyzer IN Cardio ER; Base Excess (BEa) -5.8 mEq/L (-2.0 to +3.0); Calcium, Ionized (arterial) 1.08 mmol/L (1.12-1.30); Carboxyhemoglobin (COHb) 0.8 gm% (0.0-3.0); Hemoglobin (Hb) 8.7 g/dL (11.4-15.4); Potassium - ABG Lab 4.74 mmol/L (3.70-5.30); pH, Arterial 7.44 (7.35-7.45)
[2022-11-17 09:18] LABS: O2 Tension (PaO2), arterial 48.3 mmHg (80.0-100.0); Puncture Site LBA
[2022-11-17] MEDS: Sodium Bicarbonate 150 MEQ in Dextrose 5% in Water 1,000 ML IV SCH (09:21)
[2022-11-17 09:22] LABS: Hemoglobin 8.2 g/dL (14.0-18.0); Mean Corpuscular HGB CONC 32.2 g/dL (32.0-36.0); Mean Corpuscular Hemoglobin 28.5 pg (25.0-35.0); Mean Corpuscular Volume 88.5 fl (78.0-98.0); Mean Platelet Volume 11.9 fL (7.4-10.4); Platelet Count 18 10x3/uL (130-400); RBC Distribution Width 16.4 % (11.5-14.5); Red Blood Cell (RBC) Count 2.89 mill/uL (4.00-5.20); White Blood Cell (WBC) Count 6.8 10x3/uL (4.8-10.8)
[2022-11-17 09:38] LABS: ALT (SGPT) 15 U/L (8-55); AST (SGOT) 26 U/L (5-34); Albumin 2.2 g/dL (3.5-5.0); Alkaline Phosphatase 119 U/L (50-130); Anion Gap 14 mmol/L (10-20); BUN (Urea Nitrogen) 26 mg/dL (8.9-20.6); Calc. Creatinine Clearance 182 mL/min (70-130); Calcium 7.5 mg/dL (7.8-10.44); Carbon Dioxide 17 mmol/L (22-29); Chloride 111 mmol/L (98-107); Estimated GFR 143; Glucose 141 mg/dL (70-105); Potassium 4.8 mmol/L (3.5-5.1); Protein, Total 5.2 g/dL (6.0-8.3); Sodium 137 mmol/L (136-145)
[2022-11-17 09:39] LABS: ALT (SGPT) 16 U/L (8-55); AST (SGOT) 25 U/L (5-34); Albumin 2.2 g/dL (3.5-5.0); Alkaline Phosphatase 117 U/L (50-130); Bilirubin, Total 15.8 mg/dL (0.2-1.2); Protein, Total 5.2 g/dL (6.0-8.3)
[2022-11-17] MEDS ORDERED: Furosemide 40 MG/4 ML VIAL SLOW IVP SCH (10:00)
[2022-11-17] MEDS ORDERED: Ventilator Sedation Protocol 1 EACH FS SCH (10:08)
[2022-11-17] MEDS ORDERED: Rocuronium Bromide 10 MG/ML (10ML VIAL) ONE (10:28)
[2022-11-17] MEDS ORDERED: Propofol 1,000 MG/100 ML VIAL IV ONE (10:28)
[2022-11-17] MEDS ORDERED: Propofol BOLUS 1,000 MG/100 ML VIAL IV PRN (10:30)
[2022-11-17] MEDS ORDERED: DISCONTINUE PREVIOUS NARCOTIC PAIN MEDICATIONS AND BENZODIAZEPINES FS SCH (10:30)
[2022-11-17] MEDS ORDERED: Fentanyl BOLUS 250 ML IVPB PRN (10:30)
[2022-11-17] MEDS ORDERED: Morphine 2 MG/ML VIAL SLOW IVP PRN (10:30)
[2022-11-17 11:01] LABS: Bilirubin, Direct Greater than 10.0 mg/dL (0.1-0.3)
[2022-11-17] MEDS: Midazolam HCl 2 mg/2 ml Vial ONE ×2 (11:15→11:17)
[2022-11-17] MEDS: Propofol 1,000 MG/100 ML VIAL IV PRN ×3 (11:20→20:42)
[2022-11-17 11:44] LABS: Band 10 % (5-11); Lymphocytes 5 % (28-48); MDiff Complete? YES; Metamyelocyte 1 % (0-0); Monocytes 9 % (0-4); Myelocyte 1 % (0-0); Neutrophil 71 % (31-61); Platelet Morphology Comment Appears Decreased; Polychromasia SLIGHT = 2-3 cells (100X) (0-2/hpf); Reactive Lymphocytes 3 % (0-10)
[2022-11-17] MEDS: Lorazepam 2 MG/ML VIAL SLOW IVP PRN ×4 (11:56→20:42)
[2022-11-17] MEDS: Fentanyl CADD 100 ML IV SCH (12:00)
[2022-11-17 12:24] LABS: Actual Bicarbonate (HCO3a) 19.1 mEq/L (22-28); Analyzer IN Cardio ER; CO2 Tension 40.7 mmHg (35.0-45.0); Calcium, Ionized (arterial) 1.07 mmol/L (1.12-1.30); Carboxyhemoglobin (COHb) 0.6 gm% (0.0-3.0); Hemoglobin (Hb) 8.2 g/dL (11.4-15.4); O2 Tension (PaO2), arterial 102.7 mmHg (80.0-100.0); Potassium - ABG Lab 4.39 mmol/L (3.70-5.30); pH, Arterial 7.29 (7.35-7.45)
[2022-11-17 12:30] LABS: ALV-art Gradient 559.425 mmHg (0-20); Puncture Site RBA
[2022-11-17 13:37] LABS: INR-International Normal Ratio 1.3; Prothrombin Time 16.8 sec (12.0-14.7)
[2022-11-17] MEDS: Sulfamethoxazole/Trimethoprim 320 MG in Dextrose 5% in Water 500 ML IVPB SCH (15:28)
[2022-11-17] MEDS: Mometasone 100 MCG/Formoterol 5 MCG 120 PUFF INHALER INH SCH (18:35)
[2022-11-17] MEDS: Lidocaine 4% Patch TD SCH (20:43)
[2022-11-18] MEDS: Sulfamethoxazole/Trimethoprim 320 MG in Dextrose 5% in Water 500 ML IVPB SCH ×2 (00:12→07:56)
[2022-11-18] MEDS: Albuterol 200 PUFF (6.7GM INHALER) INH SCH ×6 (02:23→22:12)
[2022-11-18] MEDS: Lorazepam 2 MG/ML VIAL SLOW IVP PRN ×3 (03:36→20:55)
[2022-11-18] MEDS: Mometasone 100 MCG/Formoterol 5 MCG 120 PUFF INHALER INH SCH ×2 (07:50→19:15)
[2022-11-18 08:29] LABS: Actual Bicarbonate (HCO3a) 20.7 mEq/L (22-28); Base Excess (BEa) -3.3 mEq/L (-2.0 to +3.0); CO2 Tension 32.1 mmHg (35.0-45.0); Calcium, Ionized (arterial) 1.04 mmol/L (1.12-1.30); Carboxyhemoglobin (COHb) 1.7 gm% (0.0-3.0); O2 Tension (PaO2), arterial 94.2 mmHg (80.0-100.0); Potassium - ABG Lab 4.69 mmol/L (3.70-5.30); pH, Arterial 7.43 (7.35-7.45)
[2022-11-18 08:30] LABS: ALV-art Gradient 222.175 mmHg (0-20); Puncture Site LRA
[2022-11-18 08:38] LABS: Hemoglobin 7.7 g/dL (14.0-18.0); Mean Corpuscular HGB CONC 31.5 g/dL (32.0-36.0); Mean Corpuscular Hemoglobin 28.1 pg (25.0-35.0); Mean Corpuscular Volume 89.1 fl (78.0-98.0); Mean Platelet Volume 13.5 fL (7.4-10.4); Platelet Count 17 10x3/uL (130-400); RBC Distribution Width 16.5 % (11.5-14.5); Red Blood Cell (RBC) Count 2.72 mill/uL (4.00-5.20); White Blood Cell (WBC) Count 6.3 10x3/uL (4.8-10.8)
[2022-11-18] MEDS: Dexamethasone 10 MG/ML VIAL SLOW IVP SCH ×2 (08:56→20:55)
[2022-11-18] MEDS: Ascorbic Acid 500 mg Chewable Tablet PO SCH (08:57)
[2022-11-18] MEDS: Pantoprazole 40 MG VIAL IVP SCH ×2 (08:57→20:55)
[2022-11-18] MEDS: Fluconazole 100 MG TAB PO SCH (08:57)
[2022-11-18] MEDS: Sodium Bicarbonate Tab 325 MG TAB PO SCH ×2 (08:57→20:55)
[2022-11-18] MEDS: Cholecalciferol (Vitamin D3) 400 UNITS TAB PO SCH (08:57)
[2022-11-18] MEDS: Folic Acid 1 MG TAB PO SCH (08:57)
[2022-11-18] MEDS: Zinc Sulfate 220 MG CAP PO SCH (08:57)
[2022-11-18] MEDS: Transdermal Patch Removal TOP SCH (08:58)
[2022-11-18] MEDS: Propofol 1,000 MG/100 ML VIAL IV PRN ×2 (08:59→20:55)
[2022-11-18 09:08] LABS: ALT (SGPT) 12 U/L (8-55); AST (SGOT) 17 U/L (5-34); Albumin 2.1 g/dL (3.5-5.0); Alkaline Phosphatase 109 U/L (50-130); Anion Gap 15 mmol/L (10-20); BUN (Urea Nitrogen) 37 mg/dL (8.9-20.6); Bilirubin, Total 17.5 mg/dL (0.2-1.2); Calc. Creatinine Clearance 110 mL/min (70-130); Calcium 7.1 mg/dL (7.8-10.44); Carbon Dioxide 19 mmol/L (22-29); Chloride 107 mmol/L (98-107); Estimated GFR 124; Globulin 2.9 g/dL (2.4-3.5); Glucose 119 mg/dL (70-105); Potassium 4.9 mmol/L (3.5-5.1); Sodium 136 mmol/L (136-145)
[2022-11-18 09:10] LABS: Hep A IgM AB Non-Reactive (NonReactive); Hep A IgM S/CO 0.24 S/CO (0-0.79)
[2022-11-18] MEDS: BIKTARVY PO SCH (09:33)
[2022-11-18] MEDS: guaiFENesin ER 600 MG TAB PO SCH ×2 (09:33→20:55)
[2022-11-18 10:01] LABS: Legionella Urinary Ag Negative (Negative)
[2022-11-18 11:08] LABS: Band 13 % (5-11); Crenated RBC SLIGHT = 1-5 cells (100X) (None Seen); Lymphocytes 11 % (28-48); MDiff Complete? YES; Monocytes 6 % (0-4); Myelocyte 3 % (0-0); Neutrophil 63 % (31-61); Platelet Morphology Comment Appears Decreased; Polychromasia SLIGHT = 2-3 cells (100X) (0-2/hpf); Reactive Lymphocytes 4 % (0-10); Schistocytes SLIGHT = 2-5 cells (100X) (0-1/hpf)
[2022-11-18 11:10] LABS: Fibrinogen 463 mg/dL (253-463)
[2022-11-18 11:11] LABS: D-Dimer Test 2.23 *mcg/mL (0.27-0.43); INR-International Normal Ratio 1.3; PTT 30.2 sec (22.9-36.1); Prothrombin Time 17.1 sec (12.0-14.7)
[2022-11-18 11:15] LABS: Kappa Lambda Light Chain Ratio 0.43 (0.26-1.65); Kappa Light Chains 73.4 mg/L (3.3-19.4); Lambda Light Chain 170.3 mg/L (5.7-26.3)
[2022-11-18 11:31] LABS: Platelet Count 16 10x3/uL (130-400)
[2022-11-18 13:12] LABS: Ref Lab Test Ordered HHV8 PCR; Reference Lab Name LABCORP
[2022-11-18 16:45] VITALS: TEMP 98.1
[2022-11-18] MEDS ORDERED: Sodium Bicarbonate 150 MEQ in Dextrose 5% in Water 1,000 ML IV SCH (17:15)
[2022-11-18] MEDS: Albumin 25% 25 GM/100 ML BOT IVPB SCH ×2 (17:25→23:11)
[2022-11-18] MEDS ORDERED: Fentanyl CADD 100 ML ONE (18:38)
[2022-11-18] MEDS: Fentanyl CADD 100 ML IV SCH (18:40)
[2022-11-18] MEDS ORDERED: Sulfamethoxazole/Trimethoprim 320 MG in Dextrose 5% in Water 500 ML IVPB SCH (20:00)
[2022-11-18] MEDS: Lidocaine 4% Patch TD SCH (20:56)
[2022-11-19] MEDS: Lorazepam 2 MG/ML VIAL SLOW IVP PRN (01:24)
[2022-11-19] MEDS: Albuterol 200 PUFF (6.7GM INHALER) INH SCH ×6 (02:36→21:50)
[2022-11-19 04:14] LABS: Critical Call w/ Read Back ICU.RB; Hemoglobin 5.8 g/dL (14.0-18.0); Mean Corpuscular Hemoglobin 29.8 pg (25.0-35.0); Mean Corpuscular Volume 87.7 fl (78.0-98.0); Mean Platelet Volume 13.5 fL (7.4-10.4); Platelet Count 17 10x3/uL (130-400); RBC Distribution Width 16.6 % (11.5-14.5); Red Blood Cell (RBC) Count 1.95 mill/uL (4.00-5.20); White Blood Cell (WBC) Count 4.7 10x3/uL (4.8-10.8)
[2022-11-19 04:37] LABS: ALT (SGPT) 10 U/L (8-55); AST (SGOT) 23 U/L (5-34); Albumin 2.3 g/dL (3.5-5.0); Alkaline Phosphatase 117 U/L (50-130); Anion Gap 14 mmol/L (10-20); BUN (Urea Nitrogen) 57 mg/dL (8.9-20.6); Bilirubin, Total 19.3 mg/dL (0.2-1.2); Calc. Creatinine Clearance 86 mL/min (70-130); Calcium 7.2 mg/dL (7.8-10.44); Carbon Dioxide 20 mmol/L (22-29); Chloride 108 mmol/L (98-107); Estimated GFR 92; Globulin 2.6 g/dL (2.4-3.5); Glucose 147 mg/dL (70-105); Potassium 5.1 mmol/L (3.5-5.1); Protein, Total 4.9 g/dL (6.0-8.3); Sodium 137 mmol/L (136-145)
[2022-11-19] MEDS: Albumin 25% 25 GM/100 ML BOT IVPB SCH (05:09)
[2022-11-19 05:22] LABS: Band 8 % (5-11); Lymphocytes 11 % (28-48); MDiff Complete? YES; Monocytes 6 % (0-4); Myelocyte 1 % (0-0); Neutrophil 74 % (31-61); Nucleated RBC 1 % (0); Platelet Morphology Comment Appears Decreased
[2022-11-19 05:42] LABS: Fibrinogen 435 mg/dL (253-463)
[2022-11-19 05:43] LABS: INR-International Normal Ratio 1.3; PTT 30.9 sec (22.9-36.1); Prothrombin Time 16.5 sec (12.0-14.7)
[2022-11-19 05:44] LABS: D-Dimer Test 2.32 *mcg/mL (0.27-0.43)
[2022-11-19] MEDS: Mometasone 100 MCG/Formoterol 5 MCG 120 PUFF INHALER INH SCH ×2 (07:12→18:22)
[2022-11-19] MEDS: Folic Acid 1 MG TAB PO SCH (08:16)
[2022-11-19] MEDS: Sodium Bicarbonate Tab 325 MG TAB PO SCH ×2 (08:16→20:09)
[2022-11-19] MEDS: Cholecalciferol (Vitamin D3) 400 UNITS TAB PO SCH (08:16)
[2022-11-19] MEDS: Pantoprazole 40 MG VIAL IVP SCH ×2 (08:16→20:09)
[2022-11-19] MEDS: Ascorbic Acid 500 mg Chewable Tablet PO SCH (08:16)
[2022-11-19] MEDS: Zinc Sulfate 220 MG CAP PO SCH (08:16)
[2022-11-19] MEDS: Fluconazole 100 MG TAB PO SCH (08:16)
[2022-11-19] MEDS: Dexamethasone 10 MG/ML VIAL SLOW IVP SCH (08:24)
[2022-11-19] MEDS ORDERED: guaiFENesin 200 MG TAB PO PRN (08:31)
[2022-11-19 10:38] LABS: Hemoglobin 8.1 g/dL (14.0-18.0); Mean Corpuscular HGB CONC 33.6 g/dL (32.0-36.0); Mean Corpuscular Hemoglobin 29.9 pg (25.0-35.0); Mean Corpuscular Volume 88.8 fl (78.0-98.0); Mean Platelet Volume 12.8 fL (7.4-10.4); Platelet Count 30 10x3/uL (130-400); Red Blood Cell (RBC) Count 2.72 mill/uL (4.00-5.20); White Blood Cell (WBC) Count 7.6 10x3/uL (4.8-10.8)
[2022-11-19 10:39] LABS: Platelet Count 30 10x3/uL (130-400)
[2022-11-19] MEDS ORDERED: Ethambutol HCl 400 MG TAB PO SCH ×2 (11:15)
[2022-11-19] MEDS ORDERED: Fluconazole In NaCl,Iso-Osm 400 MG in Premix Bag 1 BAG IVPB SCH (11:15)
[2022-11-19] MEDS: Propofol 1,000 MG/100 ML VIAL IV PRN (11:17)
[2022-11-19 11:55] LABS: Complement-C4 5.6 mg/dL (15-53)
[2022-11-19 11:56] LABS: Bacteria/HPF None Seen HPF (None Seen); Bilirubin 4+ (Negative); Blood, Urine Negative (Negative); CAUTI Indications for Culture Immunosuppressed; Clarity Clear (Clear); Glucose, Urine (Dipstick) Normal (Negative); Ketone, Urine Negative (Negative); Leukocyte Negative Leu/uL (Negative); Nitrite Negative (Negative); Protein, Urine (Dipstick) 20 mg/dL (Neg-Trace); RBC/HPF 0-3 HPF (0-3); Specific Gravity, Urine 1.017 (1.002-1.036); Squamous Epithelial 0-3 HPF (0-3); WBC/HPF 0-3 HPF (0-3)
[2022-11-19 11:59] LABS: Urine Culture Reflex Yes Yes
[2022-11-19] MEDS ORDERED: Sodium Bicarbonate Tab 325 MG TAB PER TUBE PRN (12:30)
[2022-11-19] MEDS ORDERED: Pancrelipase DR 12,000 1 CAP FS PRN (12:30)
[2022-11-19 13:08] LABS: Actual Bicarbonate (HCO3a) 19.5 mEq/L (22-28); Analyzer IN Cardio ER; CO2 Tension 29.6 mmHg (35.0-45.0); Calcium, Ionized (arterial) 1.06 mmol/L (1.12-1.30); Carboxyhemoglobin (COHb) 0.9 gm% (0.0-3.0); Hemoglobin (Hb) 8.2 g/dL (11.4-15.4); O2 Tension (PaO2), arterial 88.4 mmHg (80.0-100.0); Potassium - ABG Lab 4.89 mmol/L (3.70-5.30); pH, Arterial 7.44 (7.35-7.45)
[2022-11-19 13:12] LABS: Puncture Site RBA
[2022-11-19 13:13] LABS: Protein, Urine Random Quant 27 mg/dL (1-14); Sodium, Urine 47 mmol/L (Not Available); Urea Nitrogen, Random Urine 913 mg/dl
[2022-11-19 13:37] LABS: Parvovirus B19 IgG ABS 3.9 index (0.0-0.8); Parvovirus B19 IgM ABS 0.5 index (0.0-0.8)
[2022-11-19] MEDS: Azithromycin 500 MG in Sodium Chloride 0.9% 250 ML 250 ML IVPB SCH (13:40)
[2022-11-19] MEDS ORDERED: Furosemide 20 MG/2 ML VIAL SLOW IVP SCH (17:00)
[2022-11-19 17:21] LABS: Reference Lab Name LABCORP
[2022-11-19 19:36] LABS: Hemoglobin 8.5 g/dL (14.0-18.0)
[2022-11-19] MEDS ORDERED: Sodium Bicarbonate 150 MEQ in Dextrose 5% in Water 1,000 ML IV SCH (19:45)
[2022-11-19 23:36] LABS: CMV DNA-PCR Test Negative (Negative)
[2022-11-20] MEDS: Propofol 1,000 MG/100 ML VIAL IV PRN ×2 (00:34→10:05)
[2022-11-20] MEDS: Albuterol 200 PUFF (6.7GM INHALER) INH SCH ×4 (01:56→14:14)
[2022-11-20] MEDS: Lorazepam 2 MG/ML VIAL SLOW IVP PRN ×3 (04:27→16:18)
[2022-11-20 05:30] LABS: ALT (SGPT) 12 U/L (8-55); AST (SGOT) 31 U/L (5-34); Alkaline Phosphatase 157 U/L (50-130); Anion Gap 15 mmol/L (10-20); BUN (Urea Nitrogen) 74 mg/dL (8.9-20.6); Bilirubin, Total 22.4 mg/dL (0.2-1.2); Calc. Creatinine Clearance 70 mL/min (70-130); Calcium 7.5 mg/dL (7.8-10.44); Carbon Dioxide 22 mmol/L (22-29); Chloride 110 mmol/L (98-107); Estimated GFR 68; Globulin 2.8 g/dL (2.4-3.5); Glucose 130 mg/dL (70-105); Potassium 4.8 mmol/L (3.5-5.1); Protein, Total 4.8 g/dL (6.0-8.3); Sodium 142 mmol/L (136-145)
[2022-11-20 05:52] LABS: Anisocytosis SLIGHT = 6-15 cells (100X) (0-5/hpf); Band 3 % (5-11); Crenated RBC SLIGHT = 1-5 cells (100X) (None Seen); Large Platelets SLIGHT; Lymphocytes 7 % (28-48); MDiff Complete? YES; Mean Corpuscular Hemoglobin 30.1 pg (25.0-35.0); Mean Corpuscular Volume 88.6 fl (78.0-98.0); Mean Platelet Volume 11.5 fL (7.4-10.4); Monocytes 6 % (0-4); Neutrophil 83 % (31-61); Nucleated RBC 6 % (0); Platelet Count 27 10x3/uL (130-400); Platelet Morphology Comment Appears Decreased; Polychromasia SLIGHT = 2-3 cells (100X) (0-2/hpf); RBC Distribution Width 16.1 % (11.5-14.5); Reactive Lymphocytes 1 % (0-10); Red Blood Cell (RBC) Count 2.65 mill/uL (4.00-5.20); White Blood Cell (WBC) Count 7.3 10x3/uL (4.8-10.8)
[2022-11-20] MEDS ORDERED: Albumin 25% 25 GM/100 ML BOT IVPB SCH ×2 (06:30→12:00)
[2022-11-20] MEDS: Mometasone 100 MCG/Formoterol 5 MCG 120 PUFF INHALER INH SCH (07:03)
[2022-11-20 07:13] LABS: Actual Bicarbonate (HCO3a) 24.6 mEq/L (22-28); CO2 Tension 34.3 mmHg (35.0-45.0); Calcium, Ionized (arterial) 1.04 mmol/L (1.12-1.30); Carboxyhemoglobin (COHb) 2.3 gm% (0.0-3.0); Hemoglobin (Hb) 7.7 g/dL (11.4-15.4); O2 Tension (PaO2), arterial 104.4 mmHg (80.0-100.0); Potassium - ABG Lab 4.72 mmol/L (3.70-5.30); pH, Arterial 7.47 (7.35-7.45)
[2022-11-20 07:16] LABS: Puncture Site RRA
[2022-11-20 07:17] LABS: ALV-art Gradient 209.225 mmHg (0-20)
[2022-11-20] MEDS: Pantoprazole 40 MG VIAL IVP SCH (08:00)
[2022-11-20] MEDS: Zinc Sulfate 220 MG CAP PO SCH (08:00)
[2022-11-20] MEDS: Cholecalciferol (Vitamin D3) 400 UNITS TAB PO SCH (08:00)
[2022-11-20] MEDS: Folic Acid 1 MG TAB PO SCH (08:00)
[2022-11-20] MEDS: Ascorbic Acid 500 mg Chewable Tablet PO SCH (08:01)
[2022-11-20] MEDS ORDERED: Dexamethasone 4 mg/ml Vial SLOW IVP SCH (09:00)
[2022-11-20] MEDS ORDERED: Ethambutol HCl 400 MG TAB PO SCH ×2 (09:00)
[2022-11-20] MEDS ORDERED: Fluconazole In NaCl,Iso-Osm 400 MG in Premix Bag 1 BAG IVPB SCH (09:00)
[2022-11-20] MEDS ORDERED: Sodium Bicarbonate Tab 325 MG TAB PO SCH (09:00)
[2022-11-20 10:15] LABS: Hemoglobin S Reflexed % (0.0)
[2022-11-20 12:41] LABS: Creatinine, Urine 29.53 mg/dL (63-166)
[2022-11-20] MEDS: Azithromycin 500 MG in Sodium Chloride 0.9% 250 ML 250 ML IVPB SCH (13:54)
[2022-11-20 14:15] VITALS: BP 127/73
[2022-11-20] MEDS: Acetaminophen 325 MG TAB PO PRN (15:05)
[2022-11-20 15:21] LABS: 24 Hr Creatinine 723.49 mg/24 hr (950-2490)
[2022-11-20 16:03] VITALS: BMI 20.5
[2022-11-21 13:14] LABS: G-6-PD,Quant 322 (156-397); G-6-PD,RBC 2.73 x10E6/uL (4.14-5.80)
[2022-11-22 11:49] LABS: Cell Block/Cytology Request REQUEST RECEIVED
[2022-11-23 10:37] LABS: Fungus Stain Final report (.)
[2022-11-25 16:14] LABS: A. flavus Negative (Neg:<1:1); A. fumigatus Negative (Neg:<1:1); A. niger Negative (Neg:<1:1); Blastomyces AB Negative (Neg:<1:1)
== END 2022-11-20 16:28 | disposition short-term general hospital (02) | DRG 974 ==
LOC: ERS 14:00 → IMCU/EMU 16:11 → T4-A 11-10 23:25 → IMCU/EMU 11-17 03:50 → CCU 11-17 10:54
PROVIDERS: ADMIT Internal Medicine; ATTEND Internal Medicine
PROC: 8E0ZXY6 Isolation (ICD-10-PCS; 2022-11-09)
PROC: XW0DXF5 Introduction of Other New Technology Therapeutic Substance into Mouth and Pharynx, External Approach, New Technology Group 5 (ICD-10-PCS; principal; 2022-11-10)
PROC: 30233N1 Transfusion of Nonautologous Red Blood Cells into Peripheral Vein, Percutaneous Approach (ICD-10-PCS; 2022-11-11)
PROC: 5A1945Z Respiratory Ventilation, 24-96 Consecutive Hours (ICD-10-PCS; 2022-11-17)
PROC: 0BH18EZ Insertion of Endotracheal Airway into Trachea, Via Natural or Artificial Opening Endoscopic (ICD-10-PCS; 2022-11-17)
PROC: 0B9D8ZX Drainage of Right Middle Lung Lobe, Via Natural or Artificial Opening Endoscopic, Diagnostic (ICD-10-PCS; 2022-11-17)
PROC: 5A0935A Assistance with Respiratory Ventilation, Less than 24 Consecutive Hours, High Flow/Velocity Cannula (ICD-10-PCS; 2022-11-17)
PROC: 5A09357 Assistance with Respiratory Ventilation, Less than 24 Consecutive Hours, Continuous Positive Airway Pressure (ICD-10-PCS; 2022-11-17)
PROC: 0DH67UZ Insertion of Feeding Device into Stomach, Via Natural or Artificial Opening (ICD-10-PCS; 2022-11-19)
PROC: 3E0G76Z Introduction of Nutritional Substance into Upper GI, Via Natural or Artificial Opening (ICD-10-PCS; 2022-11-19)
DX: U07.1 COVID-19 (principal); J96.01 Acute respiratory failure with hypoxia; B20 Human immunodeficiency virus [HIV] disease; J12.82 Pneumonia due to coronavirus disease 2019; E87.1 Hypo-osmolality and hyponatremia; J84.9 Interstitial pulmonary disease, unspecified; E87.3 Alkalosis; E87.20 Acidosis, unspecified; R18.8 Other ascites; N17.9 Acute kidney failure, unspecified; D61.818 Other pancytopenia; D69.6 Thrombocytopenia, unspecified; F10.20 Alcohol dependence, uncomplicated; J45.909 Unspecified asthma, uncomplicated; I08.1 Rheumatic disorders of both mitral and tricuspid valves; D75.9 Disease of blood and blood-forming organs, unspecified; D69.59 Other secondary thrombocytopenia; R16.1 Splenomegaly, not elsewhere classified; D63.8 Anemia in other chronic diseases classified elsewhere; E80.6 Other disorders of bilirubin metabolism; Z91.14 Patient's other noncompliance with medication regimen; Z28.21 Immunization not carried out because of patient refusal; Z79.899 Other long term (current) drug therapy; Z78.1 Physical restraint status
CPT/HCPCS: 31624; 36415; 36430; 36600; 71045; 71046; 71275; 74018; 74177; 76700; 76705; 80048; 80053; 80074; 80306; 80307; 81001; 81003; 82140; 82248; 82550; 82570; 82607; 82728; 82805; 82955; 83010; 83021; 83540; 83550; 83605; 83615; 83690; 83883; 84156; 84300; 84478; 84484; 84540; 85025; 85041; 85049; 85060; 85300; 85362; 85379; 85384; 85610; 85652; 85730; 86140; 86160; 86361; 86480; 86606; 86612; 86701; 86702; 86709; 86747; 86850; 86900; 86901; 87040; 87070; 87086; 87102; 87103; 87116; 87206; 87385; 87389; 87449; 87497; 87536; 87899; 88112; 88312; 93005; 93010; 93306; 94002; 94003; 96374; 96375; C9113; J0456; J0696; J1100; J1450; J1885; J1940; J2060; J2250; J2270; J2405; J2704; J2916; J3010; J3475; J3490; J7050; J7070; J7120; J7620; P9016; P9047; Q9966; Q9967; S0028; U0002